=== PATIENT | female | born 1960 | race Caucasian/White ===

== ENCOUNTER 2022-07-18 06:41 | Emergency (ER) | payer OTHER ==
[~2022-07-18] VITALS: Ht 170.2 cm; Wt 145.0 kg
[2022-07-18 06:45] VITALS: BP 146/77
[2022-07-18 08:42] LABS: CLARITY,URINE CLEAR (Clear); COLOR,URINE STRAW (Yellow); GLUCOSE, URINE NEGATIVE (Neg); KETONES,URINE NEGATIVE (Neg); LEUKOCYTE ESTERASE ,URINE NEGATIVE (Neg); NITRITES, URINE NEGATIVE (Neg); OCCULT BLOOD,URINE NEGATIVE (Neg); PROTEIN,URINE NEGATIVE (Neg); UROBILINOGEN,URINE 0.2 E.U/dL (0.2-1.0)
[2022-07-18 08:53] LABS: UA COLLECTION TYPE CLN CATCH MIDSTREAM
[2022-07-18 08:55] LABS: BASOPHILS % (AUTO) 0.5 % (0-1); EOSINOPHILS % (AUTO) 0.8 % (0-6); HEMATOCRIT 41.4 % (35.0-45.0); HEMOGLOBIN 14.2 g/dl (12.0-16.0); LYMPHOCYTES # (AUTO) 2.1 X10'3 (1.1-4.8); LYMPHOCYTES % (AUTO) 37.9 % (21-51); MEAN CORPUSCULAR HEMOGLOBIN 32.5 PG (27.0-31.0); MEAN CORPUSCULAR HGB CONC 34.2 g/dL (33.0-36.5); MEAN PLATELET VOLUME 8.3 FL (7.4-10.4); MONOCYTES # (AUTO) 0.3 X10'3 (0-0.9); MONOCYTES % (AUTO) 4.7 % (2-12); NEUTROPHILS # (AUTO) 3.1 X10'3 (1.8-7.7); NEUTROPHILS % (AUTO) 56.1 % (42-75); PLATELET COUNT 363 X10'3 (140-440); RED BLOOD COUNT 4.36 X10'6 (4.20-5.60); RED CELL DISTRIBUTION WIDTH 12.5 % (11.5-14.5); WHITE BLOOD COUNT 5.5 X10'3 (4.5-11.0)
[2022-07-18 09:08] LABS: ALANINE AMINOTRANSFERASE 18 U/L (12-78); ALBUMIN 3.8 G/DL (3.4-5.0); ALKALINE PHOSPHATASE 80 IU/L (46-116); ANION GAP 6 (8-16); ASPARTATE AMINO TRANSFERASE 15 U/L (10-37); BILIRUBIN,TOTAL 0.4 MG/DL (0.1-1.0); BLOOD UREA NITROGEN 13 MG/DL (7-18); BUN/CREATININE RATIO 19.1 (10.0-20.0); C-REACTIVE PROTEIN 0.12 MG/DL (0.0-0.5); CALCIUM 9.3 MG/DL (8.5-10.1); CHLORIDE 102 MMOL/L (99-107); CREATININE 0.68 MG/DL (0.40-0.90); GLUCOSE 104 MG/DL (70-104); MAGNESIUM 1.9 MG/DL (1.5-2.4); POTASSIUM 3.6 MMOL/L (3.5-5.1); SODIUM 139 MMOL/L (135-145); TOTAL CARBON DIOXIDE 31.5 MMOL/L (24-32); TOTAL PROTEIN 7.8 G/DL (6.4-8.2); eGFR 89 ML/MIN
== END 2022-07-18 10:53 | disposition home or self-care (01) ==
LOC: ER 06:44
DX: I88.0 Nonspecific mesenteric lymphadenitis (principal); E78.00 Pure hypercholesterolemia, unspecified
CPT/HCPCS: 36415; 70450; 71250; 74176; 80053; 81003; 83735; 83970; 84145; 85025; 86140; 99284

== ENCOUNTER 2024-02-11 10:01 | Outpatient (CLI) | payer OTHER | END 2024-02-11 23:59 | disposition home or self-care (01) | LOC: MRI02 10:01 | PROVIDERS: ATTEND Nurse Practitioner Adult Health | DX: M51.379 Other intervertebral disc degeneration, lumbosacral region without mention of lumbar back pain or lower extremity pain (principal); M47.816 Spondylosis without myelopathy or radiculopathy, lumbar region; M48.07 Spinal stenosis, lumbosacral region; M54.50 Low back pain, unspecified | CPT/HCPCS: 72148 ==

== ENCOUNTER 2024-10-16 23:56 | Emergency (ER) | payer OTHER ==
[~2024-10-16] VITALS: Ht 167.6 cm; Wt 61.5 kg
[2024-10-17] MEDS: ketorolac trometh 30MG/ML vial 30 MG/ML VIAL IM ONE (00:36)
--- NOTE | 2024-10-17 00:50 | Physician Documentation ---
History of Present Illness ~ Chief Complaint: Shoulder pain Stated Complaint: RIGHT SHOULDER PAIN Time Seen by MD: 00:06 HPI 63 year old female reports R shoulder pain radiating from her neck down to her fingers with some numbness/tingling to the fingers. She has a history of low back pain and is being worked up by a specialist for that. She denies specific injury. She took a gabapentin which did not help the pain. She has pain and feels stiffness when she moves her neck but denies weakness of the hands and dropping objects. Tetanus within 5 years?: No Medication Reconciliation Allergies: Coded Allergies: No Known Allergies (Unverified , 10/17/24) Past Medical History Past Medical History: High Cholesterol Past Surgical History: Alcohol Use: None Drug Use: none Review of Systems All Other Systems at this time: Reviewed and Negative Physical Exam Vital Signs: RN Vital Signs have been reviewed: Yes, Temperature: 98.0, Heart Rate: 72, Respiratory Rate: 16, BP: 163/86, Pulse Oximetry: 99, Weight: 61.500 Oxygen Flow Rate: 0 Physical Exam HEENT: PERRL, moist oral mucosa, EOMI Pulmonary: No respiratory distress MSK: no deformity Skin: w/d/i, no rash Neuro: alert, nonfocal Psych: normal affect Progress Results/Orders Results/Orders Completed Orders - RELL LINDO MD Diazepam Tablet (Valium Tablet) (10/17/24 00:20) Ketorolac Trometh 30mg/Ml Vial (Toradol (10/17/24 00:20) Medications Received in ER Medications (Trade) Dose Ordered Sig/Megha Route PRN Reason Start Time Stop Time Status Last Admin Dose Admin (Valium tablet) 5 mg ONCE ONCE PO 10/17/24 00:20 10/17/24 00:21 DC 10/17/24 00:36 5 MG (Toradol inj. 30mg/ml) 30 mg ONCE ONCE IM 10/17/24 00:20 10/17/24 00:21 DC 10/17/24 00:36 30 MG Vital Signs 10/17/24 00:05 Temp 98.0 Pulse 72 Resp 16 B/P (MAP) 163/86 Pulse Ox 99 O2 Flow Rate 0 Medical Decision Making Findings 63 year old female with apparent torticollis. NSAID and benzo, improved on reevaluation, discharged into care of family member. Differential Dx:Considerations: Include: Cervical disc disease, Impingement syndrome, Rotator cuff injury, Sprain Additional Comments Ddx includes torticollis Departure Disposition: HOME / SELF CARE / HOMELESS Impression: Primary Impression: Torticollis Condition: Stable Discharge Instructions: Acute Torticollis, Adult Referrals: NO PRIMARY CARE PROVIDER (PCP) Education Educated: Patient, Family Educated regarding: diagnosis, treatment, prognosis, need for follow up Signature Scribe Signature: . Attestation: . RELL LINDO MD Oct 17, 2024 00:50
[2024-10-17] MEDS: HYDROcodone/acetaminophen 5mg/325mg tablet PO ONE (01:21)
[2024-10-17 02:24] VITALS: BP 116/64; PULSE 67; O2SAT 96
[2024-10-17 03:09] VITALS: RESP 17
--- NOTE | 2024-10-17 03:19 | RADIOLOGY REPORT ---
CHEST RADIOGRAPH Indication: R shoulder pain Technique: Single frontal view of the chest was obtained COMPARISON: CT CHEST ABDOMEN PELVIS on DOS: 07/18/22 FINDINGS: Lines and Tubes: None Lungs: Clear Pleura: No effusion. No pneumothorax. Cardiomediastinal contours: Unremarkable Bones: Unremarkable IMPRESSION: 1. No acute disease.
[2024-10-17 03:48] VITALS: TEMP 98
--- NOTE | 2024-10-17 06:10 | ELECTROCARDIOGRAPH REPORT ---
[facility] Test Date: 2024-10-17 Test Time: 01:16:14 Pat Name: BECKY DIEGO Department: EMERGENCY ROOM Room: Gender: F Brick Setter: : 1960 Requested By: RELL LINDO Order Number: [id number] Reading MD: Dr. Mehrdad Jules Measurements Intervals [place] Rate: 74 P: 42 TX: 139 QRS: 78 QRSD: 96 T: -32 QT: 410 QTc: 455 Interpretive Statements Sinus rhythm Borderline T abnormalities, inferior leads Electronically Signed On 10-17-2024 6:16:[address] Mehrdad Jules Please click the below link to view image of tracing.
== END 2024-10-17 03:50 | disposition home or self-care (01) ==
LOC: ER 23:56
DX: M43.6 Torticollis (principal); E78.00 Pure hypercholesterolemia, unspecified
CPT/HCPCS: 71045; 93005; 96372; 99283; J1885

== ENCOUNTER 2024-11-08 11:09 | Outpatient (CLI) | payer OTHER ==
--- NOTE | 2024-11-08 14:23 | RADIOLOGY REPORT ---
CLINICAL INFORMATION: 64 years old, Female; SPONDYLOSIS W/O MYELOPATHY OR RADICULOPATHY, CERVICAL REGION. TECHNIQUE: Multisequence multiplanar MRI images of the cervical spine were obtained without contrast. COMPARISON: MR MRI LUMBAR SPINE on DOS: 02/11/24, CT HEAD on DOS: 07/18/22 FINDINGS: Bones: Straightening of the normal cervical lordosis. No significant spondylolisthesis. Vertebral body heights are maintained. Posterior elements are intact. No acute fracture. No focal suspicious marrow signal abnormality. Spinal cord: Spinal cord is normal in signal intensity. There is mild indentation of the spinal cord at the C5-C6 level secondary to a disc bulge in this location described below. Paraspinal soft tissues: Paraspinal and prevertebral soft tissues are unremarkable. Other: No other significant findings. Cervical disc levels: C2-C3: Disc desiccation. No significant spinal canal or neural foraminal stenosis. C3-C4: Disc desiccation. No significant spinal canal stenosis. Facet and uncinate hypertrophy with mild left neural foraminal stenosis. C4-C5: Disc desiccation. No significant spinal canal or neural foraminal stenosis. C5-C6: Disc desiccation with diffuse disc bulge causing moderate spinal canal stenosis, abutting and mildly indenting the ventral aspect of the spinal cord and effacing the lateral recesses. Facet and uncinate hypertrophy with mild bilateral neural foraminal stenoses. C6-C7: Disc desiccation with moderate disc space narrowing and diffuse disc bulge causing moderate spinal canal stenosis and partial effacement of the lateral recesses. No significant neural foraminal stenosis. C7-T1: Disc desiccation. No significant spinal canal or neural foraminal stenosis. Cystic structure in the right neural foramen, most consistent with a perineural cyst, measuring up to 5 mm. IMPRESSION: 1. Degenerative disc disease and facet/uncinate disease in the cervical spine with associated spinal canal, subarticular, and neural foraminal stenoses as detailed above. 2. Disc bulge at C5-C6 mildly indents the ventral aspect of the spinal cord. No signal abnormality of the spinal cord to suggest myelopathy. 3. Straightening of the normal cervical lordosis, may be positional or due to muscle spasm. No significant spondylolisthesis. 4. Additional findings as described above.
== END 2024-11-08 23:59 | disposition home or self-care (01) ==
LOC: MRI02 11:09
PROVIDERS: ATTEND Orthopaedic Surgery
DX: M50.123 Cervical disc disorder at C6-C7 level with radiculopathy (principal); M47.812 Spondylosis without myelopathy or radiculopathy, cervical region; M50.33 Other cervical disc degeneration, cervicothoracic region; M48.02 Spinal stenosis, cervical region; M47.22 Other spondylosis with radiculopathy, cervical region; G96.191 Perineural cyst
CPT/HCPCS: 72141